=== PATIENT | female | born 1990 | race Caucasian/White ===

== ENCOUNTER 2018-09-15 14:42 | Emergency (ER) | payer OTHER ==
[2018-09-15] MEDS: ACETAMINOPHEN 325 MG TAB PO (17:30)
== END 2018-09-15 18:40 | disposition home or self-care (01) ==
LOC: FTE 14:42
DX: M25.562 Pain in left knee (principal); F17.210 Nicotine dependence, cigarettes, uncomplicated
CPT/HCPCS: 73562; 99283-25